=== PATIENT | female | born 1965 | race Caucasian/White ===

== ENCOUNTER 2017-10-09 18:19 | Emergency (ER) | payer OTHER ==
[2017-10-09 18:57] VITALS: TEMP 97.3
[2017-10-09] MEDS ORDERED: SILVER SULFADIAZINE CREAM 1 APPL CRE TOP ONE ×2 (19:02→19:05)
[2017-10-09 20:07] VITALS: BP 135/92; PULSE 82; RESP 16; O2SAT 96
== END 2017-10-09 19:20 | disposition home or self-care (01) | DRG 935 ==
LOC: ED 18:19
DX: T23.111A Burn of first degree of right thumb (nail), initial encounter (principal); T25.121A Burn of first degree of right foot, initial encounter; T25.112A Burn of first degree of left ankle, initial encounter; X19.XXXA Contact with other heat and hot substances, initial encounter
CPT/HCPCS: 99283; 99284; 99285; A6446; A9270-GY